=== PATIENT | female | born 1945 | race Caucasian/White ===

== ENCOUNTER → 2017-06-20 | Outpatient (CLI) | payer MEDICARE ==
[~2017-06-20] MED LIST: AGGR20025 PO; BIOT1000 PO; BIOT10004 PO; CLIN1CAP5 PO; FLON0.053; GLUC500T4 PO; IPRA0.06 EACH NARE; LEVO.1 PO; LOSA100T PO; MAPA500C PO; MAPA500T13 PO; METO1TAB42 PO; MONT10TA2 PO; MULT-65 PO; RANI150 PO; RANO500 PO; ROSU10 PO; ROSU5 PO; TAB-TAB PO; TOPR25TA2 PO; VENL75XR PO; VITA10002 PO; VITA100020 SL; VITA100064 PO; VITA500C18 PO; VITATAB25 PO; ZANT150T2 PO
[2017-06-20 10:19] LABS: ANION GAP 7 MEQ/L (5-15); AST (GOT) 23 U/L (15-37); BICARBONATE 28.2 MEQ/L (21.0-32.0); BLOOD UREA NITROGEN 17 MG/DL (7-18); CHLORIDE 105 MEQ/L (98-107); GLOMERULAR FILTRATION RATE 62 ML/MIN (>89); GLUCOSE,FASTING 88 MG/DL (74-99); POTASSIUM 4.5 MEQ/L (3.5-5.1); SODIUM (NA) 140 MEQ/L (136-145)
[2017-06-20 10:31] LABS: ALKALINE PHOSPHATASE 49 U/L (45-117); ALT (GPT) 23 U/L (10-53); FREE T4 0.95 NG/DL (0.76-1.46); TOTAL BILIRUBIN ADULT 0.4 MG/DL (0.2-1.0)
== END ==
LOC: CPRE 08:10
PROVIDERS: ATTEND Internal Medicine
DX: E03.8 Other specified hypothyroidism (principal)
CPT/HCPCS: 80053; 84439; 84443

== ENCOUNTER → 2017-06-20 | Outpatient (CLI) | payer MEDICARE ==
[2017-06-20 09:28] LABS: AUTOMATED NEUTROPHIL # 5.2 TH/MM3 (1.8-7.7); BASOPHIL # 0.1 TH/MM3 (0-0.2); BASOPHIL % 0.9 % (0.0-2.0); EOSINOPHIL # 0.2 TH/MM3 (0-0.4); EOSINOPHIL % 2.1 % (0.0-4.0); HEMATOCRIT 43.2 % (35.0-46.0); HEMO FLAGS DIFF FINAL; LYMPH % 21.8 % (9.0-44.0); LYMPHOCYTE # 1.7 TH/MM3 (1.0-4.8); MEAN CELL VOLUME 98.4 FL (80.0-100.0); MEAN CORPUSCULAR HEMOGLOBIN 33.5 PG (27.0-34.0); MONO % 9.5 % (0.0-8.0); NEUT % 65.7 % (16.0-70.0); PLATELET COUNT 257 TH/MM3 (150-450); RED BLOOD COUNT 4.39 MIL/MM3 (4.00-5.30); RED CELL DISTRIBUTION WIDTH 12.9 % (11.6-17.2); WHITE BLOOD COUNT 7.9 TH/MM3 (4.0-11.0)
[2017-06-20 09:29] LABS: BLOOD, URINE NEG (NEG); GLUCOSE,URINE NEG (NEG); KETONE, URINE NEG (NEG); NITRITE,URINE NEG (NEG); PH, URINE 5.5 (5.0-8.5); URINE COLOR LIGHT-YELLOW (YELLW/STRAW)
[2017-06-20 09:30] LABS: COMMENT (UR) CATH-CULT NOT IND; CULTURE IF INDICATED CATH CULTURE NOT IND
[2017-06-20 09:37] LABS: APTT (PATIENT) 27.8 SEC (24.3-30.1); PROTHROMBIN TIME - PATIENT 10.7 SEC (9.8-11.6)
== END ==
LOC: CPRE 08:01
PROVIDERS: ATTEND Orthopaedic Surgery Orthopaedic Surgery of the Spine
DX: Z01.810 Encounter for preprocedural cardiovascular examination (principal); Z01.812 Encounter for preprocedural laboratory examination; Z79.01 Long term (current) use of anticoagulants; M16.11 Unilateral primary osteoarthritis, right hip
CPT/HCPCS: 36415; 81001; 85025; 85610; 85730

== ENCOUNTER 2017-07-05 05:28 | Inpatient (IN) | payer MEDICARE ==
[~2017-07-05] VITALS: Ht 162.6 cm; Wt 69.1 kg
[~2017-07-05 05:28] MED LIST changes: -BIOT10004 PO; -CLIN1CAP5 PO; -FLON0.053; -MAPA500T13 PO; -RANI150 PO; -ROSU5 PO; -TAB-TAB PO; -TOPR25TA2 PO; -VENL75XR PO; -VITA100020 SL; -VITATAB25 PO
[2017-07-05] MEDS ORDERED: TRANEXAMIC ACID INJ 690 MG in SODIUM CHLORIDE 0.9% INJ 100 ML IV SCH ×4 (06:00)
[2017-07-05] MEDS ORDERED: ceFAZolin 2 GM PREMIX 50 ML IV SCH (06:00)
[2017-07-05] MEDS ORDERED: CHLORHEXIDINE GLUCONATE 4% SOLN 120 ML BTL TOPICAL SCH (06:00)
[2017-07-05] MEDS ORDERED: INSULIN HUMAN REGULAR 1,000 UNITS/10 ML VIAL SQ PRN (06:00)
[2017-07-05] MEDS ORDERED: SODIUM CHLORID 0.9% 500 ML IV PRN (06:00)
[2017-07-05] MEDS ORDERED: METOPROLOL TARTRATE 25 MG TAB PO PRN (06:00)
[2017-07-05] MEDS ORDERED: LACTATED RINGER'S 1000 ML IV PRN (06:00)
[2017-07-05] MEDS ORDERED: EXPAREL PERI-ARTICULAR INJECTION (TOTAL VOL. 60 ML) P-ARTICULR SCH ×2 (06:00)
[2017-07-05] MEDS ORDERED: ACETAMINOPHEN 1000 MG/100 ML 100 ML IV ONE (06:21)
[2017-07-05] MEDS ORDERED: GENTAMICIN SULFATE 80 MG/2 ML VIAL ONE (06:22)
[2017-07-05] MEDS ORDERED: CHLORHEXIDINE GLUCONATE 2 % 1 PACK (2 CLOTHS) TOPICAL PRN (07:00)
[2017-07-05] MEDS: VANCOMYCIN 1000 MG/NS 250 ML (for <70 kg) IV SCH ×2 (07:00)
--- NOTE | 2017-07-05 09:11 | PD.OP ---
cc: Gautam Walker MD Operative Report Date of Surgery: Jul 05, 2017 Preoperative Diagnosis: Osteoarthritis right hip Postoperative Diagnosis: Same Procedure: Right total hip replacement arthroplasty, anterior exposure Anesthesia: Gen. Surgeon: Gautam Walker [employer] System Administrator(s): PHIL Mora Operation and Findings: EBL: 300 cc INDICATION: This patient presents with significant hip pain related to severe osteoarthritis of the right hip with mild protrusio. Despite extensive conservative care this patient continues to be painful and now presents for surgical treatment. NOTE: Lucero Mora PA-C was present for the entire surgical procedure as my tv production assistant. In my medical opinion her skill and care was necessary for the proper management of this patient. COMPONENTS: COMPANY: [employer] CUP: [place], 52 mm, 100 series, gription surface LINER: Altrx 36 neutral STEM: [place], size 11, high offset, hydroxyapatite-coated HEAD: 36, +1.5, metal, /14 taper PROCEDURE: This patient was brought to the operating room and anesthetized in the supine position and positioned on the fracture table with both legs held extended. The right hip and leg was scrubbed with alcohol followed by Hibiclens followed by ChloraPrep and draped sterilely. Antibiotics were given within routine time window and a timeout was done. A 4 inch incision was made starting 2 cm distal and 2 cm lateral to the anterior superior iliac spine. The fascia rickie was opened longitudinally. The interval between the fascia rickie and the rectus was opened down to the capsule of the hip joint. Retractors were positioned allowing good visualization of the capsule. This was opened longitudinally and flaps were created. Stay sutures were utilized. Exposure was excellent. The neck was cut at the proper location using fluoroscopy as a guide. The head was removed. Deep retractors were positioned allowing good visualization of the acetabulum. Acetabulum was deepened down to the floor starting with a proper size reamer and reaming up to 51 mm. A trial was utilized. Fluoroscopy was used to check position and confirmed satisfactory alignment. The rim was reamed with a 52 mm reamer and the final cup was positioned in approximately 20 of anteversion and 40-45 of abduction. Position was satisfactory. A single hole eliminator was positioned followed by the final liner. The lifting hook was utilized. The leg was dropped to the floor, maximally externally rotated and brought across the midline. Retractors were positioned. A box osteotome was utilized followed by progressive broaching to the proper stem size. Trial reduction showed excellent alignment and fit. With 60 of external rotation the leg was dropped to the floor without evidence of anterior subluxation. The wound was irrigated. The final stem was inserted and was found to be very stable. The final reduction using the final head. Stability was as previously noted. Intraoperative x-rays were taken. The wound was irrigated copiously. Hemostasis was controlled. Local anesthesia was utilized. The capsule was repaired with #2 Tycron sutures. The fascia rickie was repaired with running 0 PDS on a loop. Subcutaneous tissue was approximated with 2-0 Vicryl and skin with running intradermal 3-0 Vicryl followed by Steri-Strips. A sterile dressing was applied. The patient was awakened and taken to the recovery room in satisfactory condition. FINDINGS: There was severe osteoarthritis of the right hip. The final solution was excellent. No complication could be appreciated. Gautam Walker MD Jul 05, 2017 09:11
[2017-07-05] MEDS ORDERED: HYDR-3580 PO (09:13)
[2017-07-05] MEDS ORDERED: NALOXONE HCL 0.4 MG/ML AMP IV PUSH PRN (09:15)
[2017-07-05] MEDS ORDERED: Post-op Orders (for Pharmacy) MISC XX ONE (09:15)
[2017-07-05] MEDS ORDERED: MORPHINE SULFATE 8 MG/ML INJ IM PRN (09:15)
[2017-07-05] MEDS ORDERED: MISCELLANEOUS PHARMACY INFORMATION XX ONE (09:15)
[2017-07-05] MEDS ORDERED: SODIUM CHLORIDE 0.9% FLUSH 5 ML FLUSH IVF PRN (09:15)
[2017-07-05] MEDS ORDERED: MISCELLANEOUS NURSING INFORMATION XX PRN (09:15)
[2017-07-05] MEDS ORDERED: MORPHINE SULFATE 30 MG/30 ML PCA IV SCH (09:15)
[2017-07-05] MEDS ORDERED: DO NOT ADM ANY ANTICOAGULANT DRUGS PRN (09:30)
[2017-07-05] MEDS: LACTATED RINGER'S 1000 ML INJ 1,000 ML IV SCH ×2 (09:51→21:31)
[2017-07-05 10:38] VITALS: BP 100/55; PULSE 70; RESP 18; TEMP 95.8; O2SAT 99
[2017-07-05] MEDS: ACETAMINOPHEN/HYDROcodone 325 MG/7.5 MG TAB PO PRN ×3 (11:11→20:54)
[2017-07-05 11:36] VITALS: O2SAT 95
[2017-07-05] MEDS ORDERED: ePHEDrine/NS 25 MG/5 ML SYR IV ONE (12:00)
[2017-07-05] MEDS ORDERED: MORPHINE SULFATE 4 MG/ML INJ IV ONE (12:00)
[2017-07-05] MEDS ORDERED: ROCURONIUM INJ 50 MG/5 ML SYRINGE IV PUSH ONE (12:00)
[2017-07-05] MEDS ORDERED: NEOSTIGMINE 3 MG/3 ML SYR IV ONE (12:00)
[2017-07-05] MEDS ORDERED: LACTATED RINGER'S 1000 ML INJ 1,000 ML IV ONE (12:00)
[2017-07-05] MEDS ORDERED: GLYCOPYRROLATE 1 MG/5 ML SYRINGE IV PUSH ONE (12:00)
[2017-07-05] MEDS ORDERED: MIDAZOLAM HCL 2 MG/2 ML VIAL IV ONE (12:00)
[2017-07-05] MEDS ORDERED: ONDANSETRON HCL 4 MG/2 ML VIAL IV ONE (12:00)
[2017-07-05] MEDS ORDERED: DEXAMETHASONE SOD PHOS 4 MG/ML VIAL IV ONE (12:00)
[2017-07-05] MEDS ORDERED: LIDOCAINE HCL 1% PF 5 ML SYRINGE OTHER ONE (12:00)
[2017-07-05] MEDS ORDERED: PHENYLEPH/NS 1000 MCG/10 ML SYR IV ONE (12:00)
[2017-07-05] MEDS ORDERED: IPRATROPIUM 0.06% NASAL SCH (13:00)
[2017-07-05] MEDS: PCA - TOTAL MG MORPHINE DELIVERED PER SHIFT SCH ×2 (14:00→22:00)
[2017-07-05 16:00] VITALS: BP 109/52; PULSE 80; RESP 17; TEMP 95.6; O2SAT 96
--- NOTE | 2017-07-05 17:19 | RADRPT ---
EXAM DATE/TIME: 07/05/2017 08:03 [place] COMPARISON: No previous studies available for comparison. INDICATIONS : Right anterior hip replacement. MEDICAL HISTORY : Hypertension. Gastroesophageal reflux disease. SURGICAL HISTORY : Appendectomy. Cholecystectomy. Hiatal hernia. Tubial ligation. Carotid stent placement. ENCOUNTER: Initial ACUITY: 1 day PAIN SCORE: Non-responsive. LOCATION: Right anterior hip. FINDINGS: Right total hip arthroplasty is present. The hardware appears intact. Alignment is anatomic. Adjacent pelvis is unremarkable. CONCLUSION: Satisfactory appearance of right GALE Olivier Valencia MD on July 05, 2017 at 17:17 Board Certified Radiologist. This report was verified electronically.
[2017-07-05 19:38] VITALS: BP 110/58; PULSE 86; RESP 17; TEMP 96.7; O2SAT 95
[2017-07-05] MEDS: MAGNESIUM HYDROXIDE SUSP 30 ML CUP PO SCH (20:53)
[2017-07-05] MEDS: FAMOTIDINE 20 MG TAB PO SCH (20:53)
[2017-07-05] MEDS: METOPROLOL SUCCINATE 25 MG EXTENDED RELEASE TAB PO SCH (20:54)
[2017-07-05] MEDS: SENNOSIDES 8.6 MG TAB PO SCH (20:54)
[2017-07-05] MEDS: MONTELUKAST SODIUM 10 MG TAB PO SCH (20:54)
[2017-07-05] MEDS: DIPYRIDAMOLE/ASPIRIN 200 MG/25 MG CAP PO SCH (20:55)
[2017-07-05] MEDS: SODIUM CHLORIDE 0.9% FLUSH 5 ML FLUSH IVF SCH (20:55)
[2017-07-05] MEDS ORDERED: WALKER WHEELS/F1 MIS (21:28)
[2017-07-05] MEDS ORDERED: COMMODE 3-IN-11 MIS (21:28)
--- NOTE | 2017-07-05 21:29 | HHI.DCPOC ---
Discharge Care Plan Diagnosis: (1) Osteoarthritis of right hip Your Health Problems Are: Difficulty with ADL Incision/Drains Swelling Goals to Promote Your Health * To prevent worsening of your condition and complications * To maintain your health at the optimal level Directions to Meet Your Goals Take your medications as prescribed Follow your dietary instruction Follow activity as directed Keep your appointments as scheduled Take your immunizations and boosters as scheduled If your symptoms worsen call your PCP, if no PCP go to Urgent Care Center or Emergency Room Smoking is Dangerous to Your Health. Avoid second hand smoke Call the 24-hour hour crisis hotline for domestic abuse at Maira Conterras Jul 05, 2017 21:29
--- NOTE | 2017-07-05 21:31 | HHI.FF ---
Face to Face Verification Diagnosis: (1) Osteoarthritis of right hip Physical Therapy Gait training, Safety evaluation, Transfer training, bed to chair Hip: Total hip, Protocol: Right, Progress to weight bearing Right LE Weight Bearing: WB as tolerated Additional Instructions PT 4 days/week for 2 weeks. WBAT RLE. Anterior GALE precautions. Walker as needed. Gait training. Nursing RN Days per Week: 2 x Week(s): 1 Dressing Changes: Do not change dressing Additional Instructions Vitals assessment. Dressing assessment - do not change unless saturated or erythema. Ok to shower pod#5 if kept SEALED AND DRY. I have seen patient Katie Lindsey on 07/05/17. My clinical findings support the need for the requested home health care services because: Limited ability to care for self High risk of falls I certify that my clinical findings support that this patient is homebound because: Post-op weakness Unsteady gait/balance Maira Contreras Jul 05, 2017 21:31
--- NOTE | 2017-07-05 21:32 | HHI.DS ---
Discharge Summary Admission Date Jul 05, 2017 at 05:28 Discharge Date: Jul 07, 2017 Admitting Diagnosis see below Diagnosis: (1) Osteoarthritis of right hip Diagnosis: Principal ICD Codes: M16.11 - Unilateral primary osteoarthritis, right hip Procedures Right total hip arthroplasty, direct anterior approach Brief History This is a 72 year old female patient who has had ongoing right hip pain for many years Hospital Course Surgical treatment was performed on the day of admission without complication. She recovered well in PACU and was transferred to the orthopaedic floor. Pain was controlled with IV and oral medications. DVT prophylaxis was initiated pod# 1 by resuming her Aggrenox which she was on preoperatively. She was compliant with physical therapy and all GALE precautions. After 2 days she was found to be stable and discharged home with home health care. She was instructed to continue her Aggrenox as directed, pursued a high fiber diet and continue her physical therapy. She was given a prescription of Noro 7.5mg. Pt Condition on Discharge: Stable Discharge Disposition: Disch w/ Home Health Serv Discharge Instructions Diet Instructions: As Tolerated, No Restrictions, High Fiber Diet Activities You Can Perform: Weight Bearing as Tamela Activities to Avoid: Strenuous Activity Additional Activity Instruc.: R GALE, anterior precautions New Medications: Commode 3-in-1 (Commode 3-in-1) 1 Mis Mis EA .ROUTE DIRECTED, #1 0 Refills Walker with Front Wheels (Walker with Front Wheels) 1 Mis Mis EA .ROUTE DIRECTED, #1 0 Refills Hydrocodone/Acetaminophen (Hydrocodone-Acetamin 7.5-325) 7.5 Mg-325 Mg Tablet 1 TAB PO Q4H PRN for pain, #50 TAB Continued Medications: Acetaminophen (Mapap) 500 Mg Cap 1000 MG PO Q4-6H PRN for PAIN, CAP 0 Refills Ascorbic Acid ER (Vitamin C Sr) 500 Mg Caper 500 MG PO DAILY for Nutritional Supplement, CAP 0 Refills Biotin (Biotin) 1 Mg Tab 1000 MG PO DAILY, #1 BOTTLE Cholecalciferol (Vitamin D3) 1,000 Unit Tab 1000 UNITS PO DAILY for Nutritional Supplement, #1 BOTTLE 0 Refills Cyanocobalamin (Vitamin B-12) 1,000 Mcg Tab 1000 MCG PO DAILY for Nutritional Supplement, #1 BOTTLE 0 Refills Dipyridamole-Aspirin (Aggrenox) 200-25 Mg Cap 1 CAP PO BID for Prevent Blood Clot, #60 CAP 0 Refills Glucosamine-Chondroitin (Glucosamine-Chondroitin) 500-400 Mg Tab 1 TAB PO BID for Herbal Supplements, TAB 0 Refills Ipratropium Nasal (Ipratropium Nasal) 0.06% Smoot 1 SPRAY EACH NARE BID, #1 BOTTLE 0 Refills Levothyroxine (Synthroid) 100 Mcg Tab 100 MCG PO DAILY for Thyroid, #30 TAB 0 Refills Losartan (Losartan) 100 Mg Tab 100 MG PO DAILY for Blood Pressure Management, #30 TAB 0 Refills Metoprolol Succinate ER 24 HR (Metoprolol Succinate ER 24 HR) 25 Mg Tab 25 MG PO HS, #30 TAB 0 Refills Montelukast (Singulair) 10 Mg Tab 10 MG PO HS, #30 TAB 0 Refills Multiple Vitamin (Multi-Vitamin Daily) 1 Tab Tab 1 TAB PO DAILY for Nutritional Supplement, TAB 0 Refills Ranitidine (Zantac) 150 Mg Tab 150 MG PO DAILY for Reduce Stomach Acid, #30 TAB 0 Refills Ranolazine ER 12 HR (Ranexa ER 12 HR) 500 Mg Tab 500 MG PO DAILY for Chest Pain, #60 TAB 0 Refills Rosuvastatin (Crestor) 10 Mg Tab 10 MG PO DAILY for Cholesterol Management, #30 TAB 0 Refills Maira Contreras Jul 05, 2017 21:32
[2017-07-05 23:16] VITALS: BP 97/43; PULSE 91; RESP 17; TEMP 97.8; O2SAT 93
[2017-07-06] MEDS: ACETAMINOPHEN/HYDROcodone 325 MG/7.5 MG TAB PO PRN ×6 (01:03→21:07)
[2017-07-06 04:53] VITALS: BP 105/46; PULSE 87; RESP 18; TEMP 99.1; O2SAT 94
[2017-07-06] MEDS: LEVOTHYROXINE SODIUM 100 MCG TAB PO SCH (05:05)
[2017-07-06] MEDS: PCA - TOTAL MG MORPHINE DELIVERED PER SHIFT SCH (05:07)
[2017-07-06 06:40] LABS: HEMATOCRIT 32.6 % (35.0-46.0); REVIEW FLAG FINAL
[2017-07-06 08:00] VITALS: BP 104/54; PULSE 85; RESP 19; TEMP 98.6; O2SAT 94
[2017-07-06] MEDS: LOSARTAN 50 MG TAB PO SCH (09:00)
[2017-07-06] MEDS: SODIUM CHLORIDE 0.9% FLUSH 5 ML FLUSH IVF SCH ×2 (09:00→21:06)
[2017-07-06] MEDS: FAMOTIDINE 20 MG TAB PO SCH ×2 (09:03→21:05)
[2017-07-06] MEDS: MAGNESIUM HYDROXIDE SUSP 30 ML CUP PO SCH ×2 (09:03→21:04)
[2017-07-06] MEDS: ATORVASTATIN 20 MG TAB PO SCH (09:03)
[2017-07-06] MEDS: DIPYRIDAMOLE/ASPIRIN 200 MG/25 MG CAP PO SCH ×2 (09:12→21:05)
[2017-07-06] MEDS: RANOLAZINE 500 MG EXTENDED RELEASE TAB PO SCH (09:12)
[2017-07-06] MEDS: LACTATED RINGER'S 1000 ML INJ 1,000 ML IV SCH ×2 (10:01→22:31)
[2017-07-06 12:00] VITALS: BP 118/60; PULSE 78; RESP 18; TEMP 98.3; O2SAT 99
--- NOTE | 2017-07-06 13:26 | PD.ORT.PN ---
Subjective Subjective Remarks Doing 'ok'. Moderate right hip and groin pain with occasional spasms right thigh. No new leg pain. Pt denies any new CP or SOB. She prefers d/c home tomorrow. Objective Vitals Vital Signs Date Time Temp Pulse Resp B/P (MAP) Pulse Ox O2 Delivery O2 Flow Rate FiO2 07/06/17 08:00 98.6 85 19 104/54 (71) 94 07/06/17 05:07 16 07/06/17 04:53 99.1 87 18 105/46 (65) 94 07/05/17 23:16 97.8 91 17 97/43 (61) 93 07/05/17 22:00 16 07/05/17 19:38 96.7 86 17 110/58 (75) 95 07/05/17 16:00 95.6 80 17 109/52 (71) 96 07/05/17 14:00 16 I/O 07/05/17 07/05/17 07/05/17 07/06/17 07/06/17 07/06/17 07:00 15:00 23:00 07:00 15:00 23:00 Intake Total 2727 ml 1543 ml 838 ml 360 ml Output Total 3950 ml 375 ml 1300 ml Balance -1223 ml 1168 ml 838 ml -940 ml Intake Oral 480 ml 480 ml 360 ml IV Total 2247 ml 1063 ml 838 ml Output Urine Total 600 ml 375 ml 1300 ml Estimated Blood Loss 350 ml Other 3000 ml # Bowel Movements 0 0 0 Result Diagram: 07/06/17 0613 Procedures Right total hip arthroplasty, direct anterior approach Objective Remarks Sitting up in bed NAD VSS RLE Dressing intact, mild SS drainage, mild swelling thigh, some warmth +motor at distal, good sensation Neg homans sign. Assessment & Plan Ortho Post Op Day #: 1 Problem List: (1) Osteoarthritis of right hip ICD Codes: M16.11 - Unilateral primary osteoarthritis, right hip Qualifiers: Qualified Codes: M16.11 - Unilateral primary osteoarthritis, right hip Assessment and Plan pod#1 s/p R GALE, anterior Ortho stable. PT - WBAT RLE. Anterior GALE precautions. Aggrenox 220/25mg BID. Hold dressing changes unless saturated. PO pain control w [place] 7.5mg. D/C planning, likely home w hhc tomorrow. F2F written. Maira Contreras Jul 06, 2017 13:26
[2017-07-06 15:10] VITALS: BP 124/57; PULSE 80; RESP 18; TEMP 97.8; O2SAT 95
[2017-07-06 15:40] VITALS: O2SAT 95
[2017-07-06 20:00] VITALS: BP 117/56; PULSE 83; RESP 18; TEMP 97.1; O2SAT 92
[2017-07-06] MEDS: SENNOSIDES 8.6 MG TAB PO SCH (21:04)
[2017-07-06] MEDS: MONTELUKAST SODIUM 10 MG TAB PO SCH (21:06)
[2017-07-06] MEDS: METOPROLOL SUCCINATE 25 MG EXTENDED RELEASE TAB PO SCH (21:06)
[2017-07-07] VITALS: BP 122/74; PULSE 88; RESP 16; TEMP 96.6; O2SAT 93
[2017-07-07] MEDS: LEVOTHYROXINE SODIUM 100 MCG TAB PO SCH (05:34)
[2017-07-07] MEDS: FAMOTIDINE 20 MG TAB PO SCH (07:54)
[2017-07-07] MEDS: RANOLAZINE 500 MG EXTENDED RELEASE TAB PO SCH (07:54)
[2017-07-07] MEDS: MAGNESIUM HYDROXIDE SUSP 30 ML CUP PO SCH (07:54)
[2017-07-07] MEDS: DIPYRIDAMOLE/ASPIRIN 200 MG/25 MG CAP PO SCH (07:55)
[2017-07-07] MEDS: ATORVASTATIN 20 MG TAB PO SCH (07:55)
[2017-07-07] MEDS: ACETAMINOPHEN/HYDROcodone 325 MG/7.5 MG TAB PO PRN ×2 (07:55→12:42)
[2017-07-07 08:00] VITALS: BP 141/64; PULSE 90; RESP 17; TEMP 98.2; O2SAT 90
--- NOTE | 2017-07-07 08:11 | PD.ORT.PN ---
Subjective Subjective Remarks Doing better today. She was able to get a much better nights sleep last night. No new complaints. No new leg pain. Pt denies any new CP or SOB. She is urinating well and passing gas. Prefers d/c home today. Objective Vitals Vital Signs Date Time Temp Pulse Resp B/P (MAP) Pulse Ox O2 Delivery O2 Flow Rate FiO2 07/07/17 00:00 96.6 88 16 122/74 (90) 93 07/06/17 20:00 97.1 83 18 117/56 (76) 92 07/06/17 15:40 95 Nasal Cannula 2.00 07/06/17 15:10 97.8 80 18 124/57 (79) 95 07/06/17 12:00 98.3 78 18 118/60 (79) 99 I/O 07/06/17 07/06/17 07/06/17 07/07/17 07/07/17 07/07/17 07:00 15:00 23:00 07:00 15:00 23:00 Intake Total 838 ml 900 ml 480 ml 360 ml Output Total 1300 ml Balance 838 ml -400 ml 480 ml 360 ml Intake Oral 900 ml 480 ml 360 ml IV Total 838 ml Output Urine Total 1300 ml # Voids 3 4 2 # Bowel Movements 0 0 0 Result Diagram: 07/06/17 0613 Procedures Right total hip arthroplasty, direct anterior approach Objective Remarks Sitting up in bed NAD VSS RLE Dressing intact, no new drainage, mild swelling thigh, some warmth +motor at distal, good sensation Neg homans sign. Assessment & Plan Ortho Post Op Day #: 2 Problem List: (1) Osteoarthritis of right hip ICD Codes: M16.11 - Unilateral primary osteoarthritis, right hip Qualifiers: Qualified Codes: M16.11 - Unilateral primary osteoarthritis, right hip Assessment and Plan pod#2 s/p R GALE, anterior Ortho stable. Ok to discharge later today after PT session. Home w h[facility]. PT - WBAT RLE. Anterior GALE precautions. Aggrenox 200/25mg BID. Hold dressing changes unless saturated. PO pain control w [place] 7.5mg. F/U in 2 weeks as scheduled. F2F written. Maira Contreras Jul 07, 2017 08:11
[2017-07-07] MEDS: LOSARTAN 50 MG TAB PO SCH (09:00)
[2017-07-07] MEDS: SODIUM CHLORIDE 0.9% FLUSH 5 ML FLUSH IVF SCH (09:00)
[2017-07-07] MEDS: LACTATED RINGER'S 1000 ML INJ 1,000 ML IV SCH (11:01)
[2017-07-07 12:00] VITALS: BP 137/70; PULSE 100; RESP 17; TEMP 97.5; O2SAT 94
== END 2017-07-07 13:47 | disposition home health service (06) | DRG 470 ==
LOC: HSDI 05:28 → N06B 10:20
PROVIDERS: ADMIT Orthopaedic Surgery Orthopaedic Surgery of the Spine; ATTEND Orthopaedic Surgery Orthopaedic Surgery of the Spine
PROC: 0SR902A Replacement of Right Hip Joint with Metal on Polyethylene Synthetic Substitute, Uncemented, Open Approach (ICD-10-PCS; principal; 2017-07-05 07:10)
DX: M16.11 Unilateral primary osteoarthritis, right hip (principal); I10 Essential (primary) hypertension; E03.9 Hypothyroidism, unspecified; K21.9 Gastro-esophageal reflux disease without esophagitis; Z86.73 Personal history of transient ischemic attack (TIA), and cerebral infarction without residual deficits; Z87.891 Personal history of nicotine dependence
CPT/HCPCS: 73502; 76000; 85014; 85018; 86850; 86900; 86901; 86920; 94150; C1776; C9290; J0131; J0690; J1100; J1580; J2250; J2270; J2370; J2405; J2710; J3010; J3370; J7050; J7120